=== PATIENT | male | born 1970 | race Caucasian/White ===

== ENCOUNTER 2017-05-10 11:36 | Emergency (ER) | END 2017-05-10 14:40 | disposition home or self-care (01) ==

== ENCOUNTER 2017-10-27 10:39 | Emergency (ER) | END 2017-10-27 12:41 | disposition home or self-care (01) ==

== ENCOUNTER 2017-10-28 15:52 | Emergency (ER) | END 2017-10-28 16:02 | disposition home or self-care (01) ==

== ENCOUNTER 2018-01-10 19:12 | Emergency (ER) | END 2018-01-10 21:10 | disposition home or self-care (01) ==